=== PATIENT | male | born 1945 | race Caucasian/White ===

== ENCOUNTER 2018-10-18 09:25 | Day surgery (SDC) | payer MEDICARE ==
[2018-10-18] VITALS (11 sets, daily range): BP systolic 133–149; BP diastolic 68–95
[~2018-10-18] VITALS: Ht 167.6 cm; Wt 88.8 kg
[~2018-10-18 09:25] MED LIST: ASPI-1264 PO; ATOR40TA PO; CLOP75TA15 PO; IRBE150T51 PO; ISOS30TA6 PO; LEVO125T PO; UBID200C18 PO
[2018-10-18] MEDS ORDERED: LIDOcaine 1% (10mg/ml)w/preservative injection 20ml MDV ONE (09:35)
[2018-10-18] MEDS ORDERED: midazolam 2 mg/2 ml injection ONE ×3 (09:35→11:21)
[2018-10-18] MEDS ORDERED: iohexol 350 MG/ML 50ML vial IV ONE (09:35)
[2018-10-18] MEDS ORDERED: fentaNYL/PF 50MCG/1 ML 2ML syringe ONE (09:35)
[2018-10-18] MEDS ORDERED: iohexol 350MG/ML 100ml bottle IV ONE ×2 (09:36→10:46)
[2018-10-18] MEDS ORDERED: diphenhydrAMINE 25mg capsule PO ONE (09:41)
[2018-10-18] MEDS ORDERED: diphenhydrAMINE 25mg capsule PO PRN (09:50)
[2018-10-18] MEDS ORDERED: normal saline 1,000 ML IV SCH (09:50)
[2018-10-18] MEDS ORDERED: normal saline 1000ml 1,000 ML IV SCH (10:15)
[2018-10-18] MEDS ORDERED: NITR0.4T51 SL (10:21)
[2018-10-18 10:26] LABS: ALBUMIN 3.8 G/DL (3.4-5.0); ANION GAP 5 (8-16); BLOOD UREA NITROGEN 21 MG/DL (7-18); BUN/CREATININE RATIO 27.6 (5.4-32.0); CHLORIDE 107 MMOL/L (99-107); CREATININE 0.76 MG/DL (0.60-1.10); GLUCOSE 108 MG/DL (70-104); MAGNESIUM 1.8 MG/DL (1.5-2.4); POTASSIUM 4.1 MMOL/L (3.5-5.1); SODIUM 141 MMOL/L (135-145); eGFR > 90 ML/MIN
[2018-10-18 10:30] LABS: BASOPHILS % (AUTO) 1.1 % (0-1); EOSINOPHILS # (AUTO) 0.2 X10'3 (0-0.9); EOSINOPHILS % (AUTO) 5.6 % (0-6); HEMATOCRIT 43.6 % (42.0-52.0); HEMOGLOBIN 14.7 g/dl (14.0-17.9); LYMPHOCYTES # (AUTO) 1.4 X10'3 (1.1-4.8); LYMPHOCYTES % (AUTO) 33.6 % (21-51); MEAN CORPUSCULAR HEMOGLOBIN 30.7 PG (27.0-31.0); MEAN CORPUSCULAR HGB CONC 33.7 g/dL (33.0-36.5); MEAN PLATELET VOLUME 7.6 FL (7.4-10.4); MONOCYTES # (AUTO) 0.4 X10'3 (0-0.9); NEUTROPHILS # (AUTO) 2.1 X10'3 (1.8-7.7); NEUTROPHILS % (AUTO) 50.7 % (42-75); PLATELET COUNT 175 X10'3 (140-440); RED BLOOD COUNT 4.79 X10'6 (4.70-6.10); RED CELL DISTRIBUTION WIDTH 14.6 % (11.5-14.5); WHITE BLOOD COUNT 4.2 X10'3 (4.5-11.0)
[2018-10-18] MEDS ORDERED: heparin 1,000unit/ml 10ml vial 10 ML ONE (10:46)
[2018-10-18] MEDS ORDERED: nitroGLYCERIN-Tridil 50MG/D5W 250 ML IV ONE (11:23)
[2018-10-18] MEDS ORDERED: clopidogrel 300mg tablet ONE (11:26)
== END 2018-10-18 15:45 | disposition home or self-care (01) ==
LOC: SSTAY O 09:25
PROVIDERS: ATTEND Internal Medicine Cardiovascular Disease
DX: I25.10 Atherosclerotic heart disease of native coronary artery without angina pectoris (principal); I25.82 Chronic total occlusion of coronary artery; I10 Essential (primary) hypertension; E78.5 Hyperlipidemia, unspecified; Z95.5 Presence of coronary angioplasty implant and graft; E78.00 Pure hypercholesterolemia, unspecified; Z98.890 Other specified postprocedural states; Z82.49 Family history of ischemic heart disease and other diseases of the circulatory system; Z88.8 Allergy status to other drugs, medicaments and biological substances
CPT/HCPCS: 36415; 80048; 83735; 85025; 85610; 93005; 93459; 99152; 99153; A6257; C1769; C1874; C1884; C1894; C9604; J1644; J2001; J2250; J3010; J7030; Q0163; Q9967; A4620; C1760; C9600; C9601; J3490

== ENCOUNTER 2019-03-14 11:02 | Observation (INO) | payer MEDICARE ==
[~2019-03-14] VITALS: Ht 170.2 cm; Wt 91.0 kg
[~2019-03-14 11:02] MED LIST changes: +NITR0.4T51 SL
[2019-03-14 11:28] LABS: EOSINOPHILS # (AUTO) 0.2 X10'3 (0-0.9); EOSINOPHILS % (AUTO) 3.9 % (0-6); HEMATOCRIT 44.4 % (42.0-52.0); HEMOGLOBIN 15.2 g/dl (14.0-17.9); LYMPHOCYTES # (AUTO) 1.6 X10'3 (1.1-4.8); LYMPHOCYTES % (AUTO) 31.2 % (21-51); MEAN CORPUSCULAR HEMOGLOBIN 31.2 PG (27.0-31.0); MEAN CORPUSCULAR HGB CONC 34.2 g/dL (33.0-36.5); MEAN CORPUSCULAR VOLUME 91.2 FL (78-98); MEAN PLATELET VOLUME 7.3 FL (7.4-10.4); MONOCYTES # (AUTO) 0.4 X10'3 (0-0.9); MONOCYTES % (AUTO) 8.4 % (2-12); NEUTROPHILS # (AUTO) 2.8 X10'3 (1.8-7.7); NEUTROPHILS % (AUTO) 55.5 % (42-75); PLATELET COUNT 180 X10'3 (140-440); RED BLOOD COUNT 4.86 X10'6 (4.70-6.10); RED CELL DISTRIBUTION WIDTH 14.6 % (11.5-14.5)
[2019-03-14 11:41] LABS: PARTIAL THROMBOPLASTIN TIME 28 SECONDS (22-32)
[2019-03-14 11:44] LABS: ALANINE AMINOTRANSFERASE 28 U/L (12-78); ALBUMIN 3.9 G/DL (3.4-5.0); ALBUMIN/GLOBULIN RATIO 1.3 (1.1-1.5); ALKALINE PHOSPHATASE 73 IU/L (46-116); ANION GAP 8 (8-16); ASPARTATE AMINO TRANSFERASE 20 U/L (10-37); BILIRUBIN,TOTAL 0.5 MG/DL (0.1-1.0); BLOOD UREA NITROGEN 18 MG/DL (7-18); BUN/CREATININE RATIO 21.4 (5.4-32.0); CALCIUM 8.9 MG/DL (8.5-10.1); CHLORIDE 104 MMOL/L (99-107); CREATININE 0.84 MG/DL (0.60-1.10); GLUCOSE 110 MG/DL (70-104); SODIUM 142 MMOL/L (135-145); TOTAL CARBON DIOXIDE 30.5 MMOL/L (24-32); eGFR 89 ML/MIN
[2019-03-14] MEDS ORDERED: nitroGLYCERIN 0.4mg/hour patch TD ONE (12:40)
[2019-03-14] MEDS ORDERED: aspirin 81mg tab.chew PO ONE (12:40)
[2019-03-14] MEDS ORDERED: magnesium hydroxide 30ml (MOM) UD suspension PO PRN (13:50)
[2019-03-14] MEDS ORDERED: mag hydrox/Alum hydrox/simeth 30ml oral suspension PO PRN (13:50)
[2019-03-14] MEDS ORDERED: ondansetron/PF 4mg/2ml inj IV PRN (13:50)
[2019-03-14] MEDS ORDERED: acetaminophen 325mg tablet PO PRN ×2 (13:50)
[2019-03-14] MEDS ORDERED: morphine 2 MG/ML inj. syringe IV PRN ×2 (13:50)
[2019-03-14] MEDS ORDERED: FLUT16SP20 NAS (14:14)
--- NOTE | 2019-03-14 15:00 | NUR ---
Received admission report from Teressa CARR.
[2019-03-14] MEDS ORDERED: nitroGLYCERIN 0.4mg SUBLingual tab SL PRN ×2 (16:40→16:55)
[2019-03-14] MEDS ORDERED: aminophylline 250mg/10ml inj. IV PRN (16:55)
[2019-03-14] MEDS ORDERED: regadenoson 0.4mg/5ml syringe IV PRN (16:55)
[2019-03-14] MEDS ORDERED: metoprolol tartrate 1mg/ml inj IV PRN (16:55)
[2019-03-14 17:26] VITALS: BP 151/82
--- NOTE | 2019-03-14 18:35 | NUR ---
Problems reprioritized. Patient report given, questions answered & plan of care reviewed with Guadalupe CARR.
--- NOTE | 2019-03-14 18:59 | NUR ---
Patient in room [facility]. I have received report from LILLY Culp and had the opportunity to ask questions and assume patient care. Addendum: 03/14/19 at 1901 by Maye Kline RN Amended: Links added.
[2019-03-14 20:00] VITALS: BP 137/58
[2019-03-14] MEDS ORDERED: isosorbide mononitrate 30mg tab.SR.24H PO SCH (20:00)
[2019-03-14] MEDS ORDERED: clopidogrel 75mg tablet PO SCH (20:00)
[2019-03-14 23:47] VITALS: BP 142/66
[2019-03-15] MEDS: nitroGLYCERIN 0.4mg SUBLingual tab SL PRN ×3 (02:37→08:39)
[2019-03-15 05:04] LABS: BASOPHILS % (AUTO) 0.8 % (0-1); EOSINOPHILS # (AUTO) 0.3 X10'3 (0-0.9); EOSINOPHILS % (AUTO) 5.4 % (0-6); HEMATOCRIT 41.3 % (42.0-52.0); HEMOGLOBIN 13.9 g/dl (14.0-17.9); LYMPHOCYTES # (AUTO) 1.4 X10'3 (1.1-4.8); LYMPHOCYTES % (AUTO) 26.7 % (21-51); MEAN CORPUSCULAR HEMOGLOBIN 30.9 PG (27.0-31.0); MEAN CORPUSCULAR HGB CONC 33.6 g/dL (33.0-36.5); MEAN CORPUSCULAR VOLUME 91.9 FL (78-98); MEAN PLATELET VOLUME 7.5 FL (7.4-10.4); MONOCYTES # (AUTO) 0.5 X10'3 (0-0.9); NEUTROPHILS # (AUTO) 2.9 X10'3 (1.8-7.7); NEUTROPHILS % (AUTO) 57.1 % (42-75); PLATELET COUNT 158 X10'3 (140-440); RED BLOOD COUNT 4.49 X10'6 (4.70-6.10); RED CELL DISTRIBUTION WIDTH 14.5 % (11.5-14.5); WHITE BLOOD COUNT 5.2 X10'3 (4.5-11.0)
[2019-03-15 05:12] LABS: ALBUMIN 3.4 G/DL (3.4-5.0); ANION GAP 5 (8-16); BLOOD UREA NITROGEN 20 MG/DL (7-18); BUN/CREATININE RATIO 20.6 (5.4-32.0); CALCIUM 8.6 MG/DL (8.5-10.1); CHLORIDE 108 MMOL/L (99-107); CREATININE 0.97 MG/DL (0.60-1.10); GLUCOSE 112 MG/DL (70-104); POTASSIUM 4.2 MMOL/L (3.5-5.1); SODIUM 143 MMOL/L (135-145); TOTAL CARBON DIOXIDE 29.8 MMOL/L (24-32); eGFR 75 ML/MIN
--- NOTE | 2019-03-15 06:18 | NUR ---
Problems reprioritized. Patient report given, questions answered & plan of care reviewed with LILLY Silva. Addendum: 03/15/19 at 0618 by Maye Kline RN Amended: Links added.
--- NOTE | 2019-03-15 06:26 | NUR ---
Lab called regarding critical CA of 6.0, Dr Patel notified - said OK and did not give any new orders. Addendum: 03/15/19 at 0628 by Shira Tabor RN NOTED WRONG CHART - PT
[2019-03-15 08:00] VITALS: BP 162/84
[2019-03-15] MEDS ORDERED: isosorbide mononitrate 30mg tab.SR.24H PO SCH (08:00)
[2019-03-15] MEDS ORDERED: aspirin 325mg tablet PO SCH (08:00)
[2019-03-15] MEDS ORDERED: levoTHYROXINE 125mcg tablet PO SCH (08:00)
[2019-03-15] MEDS ORDERED: clopidogrel 75mg tablet PO SCH (08:00)
[2019-03-15] MEDS ORDERED: normal saline 1000ml 1,000 ML IV SCH (09:55)
[2019-03-15] MEDS ORDERED: midazolam 2 mg/2 ml injection ONE ×2 (10:28→11:15)
[2019-03-15] MEDS ORDERED: iohexol 350MG/ML 100ml bottle IV ONE ×2 (10:29→11:28)
[2019-03-15] MEDS ORDERED: iohexol 350 MG/ML 50ML vial IV ONE ×2 (10:29→11:51)
[2019-03-15] MEDS ORDERED: fentaNYL/PF 50MCG/1 ML 2ML syringe ONE (10:29)
[2019-03-15] MEDS ORDERED: LIDOcaine 1% (10mg/ml)w/preservative injection 20ml MDV ONE (10:29)
--- NOTE | 2019-03-15 11:00 | NUR ---
PT GOING TO [facility] FOR CARDIAC CATHETERIZATION AND POSSIBLE STENTS. PICKED UP BY PENNY FROM [facility]. PT A & O, NO EVIDENCE OF PAIN OR DISCOMFORT.
[2019-03-15] MEDS ORDERED: heparin 1,000unit/ml 10ml vial 10 ML ONE (11:35)
[2019-03-15] MEDS ORDERED: clopidogrel 300mg tablet ONE (11:51)
--- NOTE | 2019-03-15 12:13 | NUR ---
Leanne from [facility] called, pt had two stents put in, pt is to lay flat for 3 hrs and will be discharge to home at 1600. Pt doing well, no bleeding A & O no pain.
--- NOTE | 2019-03-15 14:03 | NUR ---
Pt discharge to home, pt verbalizes understanding of discharge instructions and the importance of resting and not driving for the next 24hrs. Pt was instructed what to do in case of groin bleeding and he was able to teach back instructions. Pt had all belongings packed and ready to go. Pt was wheeled out by staff member to the lobby where his family member was waiting for him to drive him home. Pt's groin dressing D & I, Pt A & o without any pain or S/S of bleeding.
== END 2019-03-15 16:05 | disposition home or self-care (01) ==
LOC: ER 11:03 → ED HOLD 14:18 → SUR 3N 15:13
PROVIDERS: ADMIT Internal Medicine; ATTEND Internal Medicine
DX: I25.110 Atherosclerotic heart disease of native coronary artery with unstable angina pectoris (principal); I10 Essential (primary) hypertension; E03.9 Hypothyroidism, unspecified; I25.2 Old myocardial infarction; E78.5 Hyperlipidemia, unspecified; E78.00 Pure hypercholesterolemia, unspecified; Z95.1 Presence of aortocoronary bypass graft; Z96.649 Presence of unspecified artificial hip joint; Z98.84 Bariatric surgery status; Z79.02 Long term (current) use of antithrombotics/antiplatelets; Z79.82 Long term (current) use of aspirin; Z79.899 Other long term (current) drug therapy
CPT/HCPCS: 36415; 71045; 80048; 80053; 83880; 84484; 85025; 85610; 85730; 87081; 93005; 93459; 96374; 99284; C1725; C1769; C1874; C1894; C9600; C9604; G0378; J1644; J2001; J2250; J2270; J3010; J7030; Q9967; 99152; 99153; A4620; A6258; C1760; C9601

== ENCOUNTER 2020-01-09 11:17 | Observation (INO) | payer MEDICARE ==
[~2020-01-09] VITALS: Ht 172.7 cm; Wt 90.6 kg
[2020-01-09] VITALS (19 sets, daily range): BP systolic 104–182; BP diastolic 52–79
[~2020-01-09 11:17] MED LIST changes: +FLUT16SP20 NAS
[2020-01-09] MEDS ORDERED: EZET10TA6 PO (11:42)
[2020-01-09] MEDS ORDERED: diphenhydrAMINE 25mg capsule PO PRN (12:10)
[2020-01-09 12:15] LABS: EOSINOPHILS # (AUTO) 0.1 X10'3 (0-0.9); EOSINOPHILS % (AUTO) 1.9 % (0-6); HEMOGLOBIN 15.9 g/dl (14.0-17.9); MEAN PLATELET VOLUME 7.5 FL (7.4-10.4); MONOCYTES # (AUTO) 0.5 X10'3 (0-0.9)
[2020-01-09 12:16] LABS: BASOPHILS % (AUTO) 0.5 % (0-1); HEMATOCRIT 46.8 % (42.0-52.0); LYMPHOCYTES # (AUTO) 2.1 X10'3 (1.1-4.8); MEAN CORPUSCULAR HEMOGLOBIN 31.1 PG (27.0-31.0); MEAN CORPUSCULAR VOLUME 91.6 FL (78-98); MONOCYTES % (AUTO) 8.1 % (2-12); NEUTROPHILS # (AUTO) 3.8 X10'3 (1.8-7.7); NEUTROPHILS % (AUTO) 57.5 % (42-75); PLATELET COUNT 154 X10'3 (140-440); RED BLOOD COUNT 5.12 X10'6 (4.70-6.10); RED CELL DISTRIBUTION WIDTH 14.4 % (11.5-14.5); WHITE BLOOD COUNT 6.7 X10'3 (4.5-11.0)
[2020-01-09 12:25] LABS: ALBUMIN 4.1 G/DL (3.4-5.0); ANION GAP 4 (8-16); BLOOD UREA NITROGEN 19 MG/DL (7-18); BUN/CREATININE RATIO 20.4 (5.4-32.0); CALCIUM 9.4 MG/DL (8.5-10.1); CHLORIDE 104 MMOL/L (99-107); CREATININE 0.93 MG/DL (0.60-1.10); GLUCOSE 97 MG/DL (70-104); SODIUM 137 MMOL/L (135-145); TOTAL CARBON DIOXIDE 29.5 MMOL/L (24-32); eGFR 79 ML/MIN
[2020-01-09 12:27] LABS: POTASSIUM 4.6 MMOL/L (3.5-5.1)
[2020-01-09] MEDS: normal saline 1,000 ML IV SCH ×2 (12:31→20:37)
[2020-01-09] MEDS ORDERED: LIDOcaine 1% 30ml preserv. free vial ONE (13:26)
[2020-01-09] MEDS ORDERED: heparin 1,000unit/ml 10ml vial 10 ML ONE (13:26)
[2020-01-09] MEDS ORDERED: midazolam 2 mg/2 ml injection ONE (13:26)
[2020-01-09] MEDS ORDERED: fentaNYL/PF 50MCG/1 ML 2ML syringe ONE (13:26)
[2020-01-09] MEDS ORDERED: iohexol 350MG/ML 100ml bottle IV ONE ×2 (13:27→14:24)
[2020-01-09] MEDS ORDERED: iohexol 350 MG/ML 50ML vial IV ONE ×2 (13:27→14:09)
[2020-01-09] MEDS ORDERED: hydrALAZINE 20mg/ml inj. IV ONE (14:27)
[2020-01-09] MEDS ORDERED: clopidogrel 300mg tablet ONE (14:40)
[2020-01-09] MEDS ORDERED: normal saline 1000ml 1,000 ML IV SCH (15:00)
[2020-01-09] MEDS ORDERED: HYDROcodone/acetaminophen 5mg/325mg tablet PO PRN ×2 (15:35→20:25)
[2020-01-09] MEDS ORDERED: HYDROcodone/acetaminophen 10/325mg tab PO PRN ×2 (15:35→20:25)
[2020-01-09] MEDS ORDERED: acetaminophen 325mg tablet PO PRN (15:35)
[2020-01-09] MEDS ORDERED: proCHLORperazine 10 MG/2 ml inj IV PRN ×2 (15:35→20:25)
[2020-01-09] MEDS ORDERED: ondansetron/PF 4mg/2ml inj IV PRN ×2 (15:35→20:25)
--- NOTE | 2020-01-09 18:00 | NUR ---
UPON PREPARING PT TO GET OOB, CHECKED GROIN SITES X2 LEFT SIDE DRSG SATURATED AND ENLARGED HEMATOMA, ECCHYMOSIS ENLARGED AREA WELL, DRSG REMOVED SURFACE OOZING SUBSIDED, PRESSURE APPLIED FOR APPROX 5 MINUTES, FEMSTOP RE-APPLIED. PT STABLE. VS STABLE, CALL TO DR FULTON INFORMED OF OCCURRENCE. PT TO GO TO PCU POSSIBLY UNTIL MORNING. INFORMED BROTHER WHO WAS TO TX HOME. ALL STATE UNDERSTANDING. CALL TO [facility] FOR BED IN PCU.
--- NOTE | 2020-01-09 18:45 | NUR ---
DR FULTON STOPPED BY TO SEE PT. PT APPRECIATIVE. PT CONTINUES TO BE STABLE, AWAITING FOR BED UPSTAIRS IN PCU.
--- NOTE | 2020-01-09 19:25 | NUR ---
REPORT AND PT TO PCU ROOM 3023B, GABY CARR, RECIEVED REPORT, RESOURCE NURSE RECEIVED PT AND ASSIST WITH SLIDE BOARD TRANSFER TO BED. PT PHILIPP WELL, LEFT GROIN REMAINED STABLE, RIGHT GROIN STABLE. VS REMAIN STABLE. FROM PCU ALSO TX, SANDWICH SODA, CHEESE, CRACKERS, FRUIT AND JELLO, PT STATES HE IS EXTREMELY HUNGRY.
--- NOTE | 2020-01-09 19:29 | NUR ---
Patient in room . I have received report from Raiza CARR by telephone from Short Stay and had the opportunity to ask questions and assume patient care once patient on the unit.
[2020-01-09] MEDS ORDERED: OXAZEpam 15mg capsule PO PRN (20:25)
[2020-01-09] MEDS ORDERED: nitroGLYCERIN 0.4mg SUBLingual tab SL PRN (20:40)
[2020-01-10 02:00] VITALS: BP 157/70
--- NOTE | 2020-01-10 06:32 | NUR ---
Problems reprioritized. Patient report given, questions answered & plan of care reviewed with Olu CARR.
--- NOTE | 2020-01-10 06:40 | NUR ---
Patient in room PCU 3023. I have received report from Antoinette CARR and had the opportunity to ask questions and assume patient care.
[2020-01-10 07:00] VITALS: BP 153/75
[2020-01-10 07:46] VITALS: BP_SYST 147
[2020-01-10] MEDS ORDERED: levoTHYROXINE 125mcg tablet PO SCH (08:00)
[2020-01-10] MEDS ORDERED: aspirin 325mg tablet PO SCH (08:00)
[2020-01-10] MEDS ORDERED: losartan 50mg tablet PO SCH (08:00)
[2020-01-10] MEDS ORDERED: isosorbide mononitrate 30mg tab.SR.24H PO SCH (08:00)
[2020-01-10] MEDS ORDERED: clopidogrel 75mg tablet PO SCH (08:00)
[2020-01-10] MEDS ORDERED: atorvastatin 20mg tablet PO SCH (08:00)
[2020-01-10] MEDS ORDERED: ezetimibe 10mg tablet PO SCH (08:00)
[2020-01-10] MEDS ORDERED: UBIDECARENONE PO SCH (08:00)
--- NOTE | 2020-01-10 10:50 | NUR ---
Called Dr. Huitron to inquire about patient's possible discharge; decided he was stable to go home. DC paperwork completed by RN. All discharge information and education reviewed with patient before signing necessary paperwork. IV discontinued with catheter in tact, child monitor removed and returned, all patient belongings packed up and sent, patient wheeled out front where he walked to his car.
== END 2020-01-10 10:40 | disposition home or self-care (01) ==
LOC: SSTAY O 11:17 → PCU 3S 19:23
PROVIDERS: ADMIT Internal Medicine Cardiovascular Disease; ATTEND Internal Medicine Cardiovascular Disease
DX: R07.89 Other chest pain (principal); I25.10 Atherosclerotic heart disease of native coronary artery without angina pectoris; R10.84 Generalized abdominal pain; I10 Essential (primary) hypertension; E78.00 Pure hypercholesterolemia, unspecified; Z95.1 Presence of aortocoronary bypass graft; Z95.5 Presence of coronary angioplasty implant and graft; Z79.02 Long term (current) use of antithrombotics/antiplatelets; Z79.82 Long term (current) use of aspirin; Z79.899 Other long term (current) drug therapy; Z88.8 Allergy status to other drugs, medicaments and biological substances
CPT/HCPCS: 36415; 80048; 83735; 85025; 85610; 93005; 93458; 96360; 96361; C1751; C1760; C1769; C1874; C1894; C9600; G0378; J0360; J1644; J2001; J2250; J3010; J7030; Q0163; Q9967; 99152; 99153; A4620; A6258

== ENCOUNTER 2020-11-25 09:49 | Emergency (ER) | payer MEDICARE ==
[~2020-11-25] VITALS: Ht 170.2 cm; Wt 86.4 kg
[~2020-11-25 09:49] MED LIST changes: +EZET10TA6 PO; -FLUT16SP20 NAS; -ISOS30TA6 PO; +ISOS30TA84 PO
[2020-11-25] MEDS ORDERED: ketorolac tromethamine 15mg/ml inj. IV ONE (10:35)
[2020-11-25] MEDS ORDERED: ondansetron/PF 4mg/2ml inj IV ONE (10:35)
[2020-11-25] MEDS ORDERED: normal saline 1000ML IV soln IVB ONE (10:35)
[2020-11-25 10:56] LABS: CLARITY,URINE CLEAR (Clear); COLOR,URINE YELLOW (Yellow); GLUCOSE, URINE NEGATIVE (Neg); KETONES,URINE NEGATIVE (Neg); LEUKOCYTE ESTERASE ,URINE NEGATIVE (Neg); NITRITES, URINE NEGATIVE (Neg); OCCULT BLOOD,URINE SMALL (Neg); PH,URINE 5.5 (4.8-8.0); PROTEIN,URINE NEGATIVE (Neg); UROBILINOGEN,URINE 0.2 E.U/dL (0.2-1.0)
[2020-11-25 11:00] LABS: UA COLLECTION TYPE NON-SPECIFIED
[2020-11-25 11:03] LABS: BACTERIA,URINE NONE SEEN /HPF (Neg); MUCUS STRANDS NONE SEEN /LPF (Neg); RBC,URINE 0-2 /HPF (0-2); SQUAMOUS EPITHELIAL CELL,UR NONE SEEN /LPF (FEW); WBC,URINE NONE SEEN /HPF (0-4)
[2020-11-25 11:04] LABS: BASOPHILS % (AUTO) 0.7 % (0-1); EOSINOPHILS # (AUTO) 0.1 X10'3 (0-0.9); EOSINOPHILS % (AUTO) 1.3 % (0-6); HEMATOCRIT 45.5 % (42.0-52.0); HEMOGLOBIN 15.2 g/dl (14.0-17.9); LYMPHOCYTES % (AUTO) 14.1 % (21-51); MEAN CORPUSCULAR HGB CONC 33.3 g/dL (33.0-36.5); MEAN CORPUSCULAR VOLUME 90.1 FL (78-98); MEAN PLATELET VOLUME 6.9 FL (7.4-10.4); MONOCYTES # (AUTO) 0.5 X10'3 (0-0.9); MONOCYTES % (AUTO) 6.5 % (2-12); NEUTROPHILS # (AUTO) 5.7 X10'3 (1.8-7.7); NEUTROPHILS % (AUTO) 77.4 % (42-75); PLATELET COUNT 172 X10'3 (140-440); RED BLOOD COUNT 5.06 X10'6 (4.70-6.10); RED CELL DISTRIBUTION WIDTH 14.3 % (11.5-14.5); WHITE BLOOD COUNT 7.4 X10'3 (4.5-11.0)
[2020-11-25 11:21] LABS: ALANINE AMINOTRANSFERASE 31 U/L (12-78); ALBUMIN 3.7 G/DL (3.4-5.0); ALBUMIN/GLOBULIN RATIO 1.2 (1.1-1.5); ALKALINE PHOSPHATASE 76 IU/L (46-116); ANION GAP 7 (8-16); ASPARTATE AMINO TRANSFERASE 22 U/L (10-37); BILIRUBIN,TOTAL 0.5 MG/DL (0.1-1.0); BLOOD UREA NITROGEN 21 MG/DL (7-18); BUN/CREATININE RATIO 19.8 (5.4-32.0); CALCIUM 8.5 MG/DL (8.5-10.1); CHLORIDE 104 MMOL/L (99-107); CREATININE 1.06 MG/DL (0.60-1.10); GLUCOSE 128 MG/DL (70-104); LIPASE 127 U/L (73-393); POTASSIUM 4.8 MMOL/L (3.5-5.1); SODIUM 140 MMOL/L (135-145); TOTAL CARBON DIOXIDE 28.7 MMOL/L (24-32); TOTAL PROTEIN 6.9 G/DL (6.4-8.2); eGFR 68 ML/MIN
[2020-11-25] MEDS ORDERED: HYDR-3965 PO (11:36)
[2020-11-25] MEDS ORDERED: KETO10TA2 PO (11:36)
[2020-11-25] MEDS ORDERED: ONDA4TAB6 PO (11:36)
[2020-11-25] MEDS ORDERED: LEVO500T89 PO (11:36)
[2020-11-25] MEDS ORDERED: TADA20TA PO (11:36)
[2020-11-25 12:19] VITALS: BP 181/82
== END 2020-11-25 12:21 | disposition home or self-care (01) ==
LOC: ER 09:49
DX: N13.2 Hydronephrosis with renal and ureteral calculous obstruction (principal); R10.9 Unspecified abdominal pain; I25.10 Atherosclerotic heart disease of native coronary artery without angina pectoris; E78.00 Pure hypercholesterolemia, unspecified; I10 Essential (primary) hypertension; Z95.5 Presence of coronary angioplasty implant and graft; Z98.84 Bariatric surgery status; Z72.89 Other problems related to lifestyle; Z79.82 Long term (current) use of aspirin; Z79.899 Other long term (current) drug therapy
CPT/HCPCS: 36415; 74176; 80053; 81001; 83690; 85025; 96361; 96374; 99284; J1885; J7030